=== PATIENT | female | born 1970 | race American Indian/Alaskan Native ===

== ENCOUNTER 2020-10-28 06:53 | Emergency (ER) | payer MEDICAID ==
[2020-10-28] MEDS ORDERED: SODIUM CHLORIDE 0.9% 1000 ML 1,000 ML ONE (07:01)
[2020-10-28] MEDS ORDERED: MINERAL OIL/PETROLATUM, WHITE OPHTH OINT 3.5 GM OU PRN (07:23)
[2020-10-28] MEDS ORDERED: LIP THERAPY VASELINE TP PRN (07:23)
--- NOTE | 2020-10-28 07:28 | Emergency Department Report ---
HPI - General Chief Complaint: Cardiac Arrest/CPR Time Seen by Provider: 10/28/20 07:22 - HPI HPI: This is a 50-year-old -[place] female presents to the emergency department, via EMS from home, in cardiac arrest. Apparently EMS was called out to see the patient last night or early this morning secondary to pain. The patient was found this morning unresponsive in the bathroom by her daughter. At the time she had significant bradycardia and a weak/thready pulse so EMS started ACLS protocol. As they began their assessment the patient lost her pulse and was in PEA. She was intubated with a 7.0 endotracheal tube. She received 2 rounds of epinephrine and was getting chest compressions and bag valve ventilation. Apparently the patient went into V. fib and received 2 different defibrillations, 2 rounds of amiodarone, before she went back into PEA. The patient arrives to the emergency department in PEA. We were able to find out that the patient has a history of liver cancer and apparently a second type of cancer or metastasis. The patient has a wristband on showing that she received a blood transfusion 2 days ago on 10/26/20. The patient's daughters arrived to the emergency department with a DNR for the patient. ED Review of Systems ROS: Stated complaint: CARDIAC ARREST Other details as noted in HPI Comment: Unobtainable due to pts medical conditions Physical Exam - Physical Exam Physical Exam: GENERAL: Patient is ill-appearing and unresponsive. HENT: Normocephalic. Atraumatic. Endotracheal tube in place. EYES: Pupils are fixed and dilated. NECK: Supple. Trachea appears midline. CHEST/LUNGS: There are no spontaneous respirations. Clear breath sounds bilaterally with bag valve ventilation. HEART/CARDIOVASCULAR: There are no spontaneous heart sounds. ABDOMEN: Abdomen is soft. There is no abdominal distention. SKIN: Skin is cool but dry. NEURO: Unresponsive. Does not withdraw to painful stimuli. Does not follow any commands. MUSCULOSKELETAL: There is no obvious deformity. No palpable femoral or radial pulses. ED Course - Reevaluation(s) Reevaluation #1: 10/28/20 07:26 I spoke to the patient's daughter regarding the fact that we had ROSC and that she is intubated, and that this all happened before we received notification of her DNR. Patient has a weak/thready pulse, bradycardia, and we are unable to obtain a blood pressure. The daughter would like her to remain on mechanical ventilation and not withdrawal care, but they would not like any further life- saving medications or interventions to be given/done. 10/28/20 08:59 Reevaluation #2: 10/28/20 07:31 The patient became significantly bradycardic so I went to reassess the patient. She was pulseless and in PEA. Based on the patient's DNR wishes and my discussions with the patient's daughter we did not begin CPR/ACLS. Time of called at 0728. The patient's daughter was notified of her expiration. ED Medical Decision Making - Medical Decision Making The patient presented to the emergency department in cardiac arrest. Initially the patient was in PEA, followed by alleged Quentin mcghee with EMS, and then again in PEA upon arrival to bed #41. We immediately continued ACLS protocol including bag valve ventilation through the endotracheal tube, chest compressions. The patient received 3 rounds of epinephrine, 1 of sodium bicarbonate, 1 of calcium. We were starting the fourth round of CPR/ACLS protocol when the patient's DNR was brought to us by the patient's daughter. At this point we stopped resuscitation efforts but the patient was found to have a pulse. She was bradycardic and had hypotension but had a palpable carotid pulse. We spoke to the patient's daughter, and let them come back to see the patient. They wanted to respect the patient's DNR wishes so no further resuscitation efforts were to be done, but they did not want to withdraw care. The plan was going to be to place the patient on the vent, order labs and imaging, and continue her kike luation/assessment until she loses her pulse, which seemed to be imminent. Shortly after the lab and radiology orders were placed, the patient's heart rate went down into the 20s. I went to reassess the patient and she was pulseless. Time of called at 7:28 AM. Patient's daughter was notified of the patient's expiration. Critical Care Time: Yes Critical care time in (mins) excluding proc time.: 35 Critical care attestation.: If time is entered above; I have spent that time in minutes in the direct care of this critically ill patient, excluding procedure time. Critical care time was spent on this patient in doing her initial evaluation, multiple reevaluations, supervision of ACLS protocol, multiple discussions with the patient's daughter. Critical Care Time: 35 minutes ED Disposition Clinical Impression: Cardiac arrest Acute respiratory failure Qualifiers: Respiratory failure complication: unspecified whether with hypoxia or hypercapnia Qualified Code(s): J96.00 - Acute respiratory failure, unspecified whether with hypoxia or hypercapnia Disposition: DC-20 Is pt being admited?: No Referrals: ZBIGNIEW HOLGUIN MD [Primary Care Provider] - 3-5 Days Time of Disposition: 08:57
== END 2020-10-28 08:00 ==
LOC: ED 06:53
DX: J96.00 Acute respiratory failure, unspecified whether with hypoxia or hypercapnia (principal); I46.9 Cardiac arrest, cause unspecified
CPT/HCPCS: 92950; 99291; J7030